=== PATIENT | male | born 1945 | race African-American/Black ===

== ENCOUNTER → 2017-11-15 | Outpatient (CLI) | payer OTHER ==
--- NOTE | ~2017-11-15 | P ---
[facility] [place] [address] PROCEDURE REPORT Name: BETINA MACARIO Room #: REG [facility]#: [id number] Admission: 11/15/17 Attend Phys: Chance Garcia Discharge: Date of : 49 Report #: [id number] THIS REPORT FOR: //name// CC: Chance Bustamante DO DATE OF SERVICE: 11/15/2017 PROCEDURE PERFORMED: Colonoscopy with biopsies. HISTORY OF PRESENT ILLNESS: The patient reports several episodes of blood in the stools recently. This is now resolved. He described a small amount of bright red blood with wiping. Denies any other symptoms. Plan is for colonoscopy. There is no family history of colon cancer. Apparently, his last colonoscopy was in 2006. PROCEDURE: The risks and benefits of the procedure were explained to the patient, those risks including, but not limited to bleeding, perforation, and the risk of sedation. He understood these risks and gave informed consent. Sedation was given using propofol per anesthesia. Next, a digital rectal exam was initially performed, which was normal. Next, using a standard [employer] colonoscope, the scope was placed in the patient's anus and advanced under direct vision to the cecum. The overall prep was excellent. The cecum and ileocecal valve were normal in appearance. Ascending colon was normal. In the transverse colon, a 4-mm sessile polyp was noted, this was removed with cold forceps, otherwise normal. Descending and sigmoid colon were normal. The rectal mucosa was normal. On retroflexion, a small internal hemorrhoid, nonbleeding was noted, otherwise normal. Scope was then withdrawn and the procedure terminated. The patient tolerated the procedure well. IMPRESSION: 1. Small colonic polyp. 2. Small internal hemorrhoid. 3. Otherwise, normal colonoscopy. RECOMMENDATIONS: 1. Await biopsy results. 2. If polyp is hyperplastic, repeat in 10 years; if adenomatous polyp, repeat in 5 years. 3. Source of recent bleeding likely secondary to internal hemorrhoid, there is no evidence of bleeding at this time, recommend high fiber diet and observing. [facility] [address] [place] [address] PROCEDURE REPORT Name: BETINA MACARIO Room #: REG [facility]#: [id number] Admission: 11/15/17 Attend Phys: Chance Garcia Discharge: Date of : 49 Report #: [id number] Thank you for allowing me to participate in his care. <ELECTRONICALLY SIGNED> By: Chance Rodney MD 11/15/17 1622 [id number] Chance Rodney MD /nt
--- NOTE | ~2017-11-15 | S ---
[facility] [place] [address] SURGICAL PATH RPT PROCEDURE Name: BETINA PRO Room #: REG [facility].#: [id number] Admission: 11/15/17 Date of : 49 Discharge: Report #: [id number] Path Case #: [id number] PATHOLOGY REPORT COLLECTION DATE: 11/15/2017 RECEIVED DATE: 11/15/2017 SUBMITTING PHYS: Dr. Chance Rodney OTHER PHYS: Dr. Rajesh Bustamante SPECIMEN(S) RECEIVED: A.Transverse colon polyp biopsy * * * * * * * * * * * * FINAL DIAGNOSIS: "Transverse colon polyp biopsy", biopsy: - Tubular adenoma; no high-grade dysplasia. (CLW:gopi; 11/18/2017) PATHOLOGIST: Cheryl Johnson M.D. REPORT ELECTRONICALLY SIGNED BY: Cheryl Johnson M.D. DATE/TIME: 11/18/2017 21:19 * * * * * * * * * * * * GROSS PATHOLOGY: The specimen is received in formalin, labeled "Betina Pro and transverse colon polyp biopsy", are two fragments of shine soft tissue 0.1 cm and a 0.2 cm in greatest dimension, entirely submitted in A1. ([facility]; 11/15/2017) CLINICAL HISTORY: Blood in stool, colon polyp INITIAL CPT CODE(S): A; 15826 Professional services performed by [facility] at [place] [address], [place] [address] Technical services performed by [facility] at [address] [place], [place] [address]vd., [address], [place], [place] [address]. [facility] [address] [place] [address] [address] [place] [address] SURGICAL PATH RPT PROCEDURE Name: BETINA PRO Room #: [facility].#: [id number] Admission: 11/15/17 Date of : 49 Discharge: Report #: [id number] Path Case #: [id number] [place] [address] PHONE: [phone] DIRECTOR: Hal Mace M.D. * * * END OF REPORT * * *
== END | disposition home or self-care (01) ==
LOC: GI 09:18
DX: K63.5 Polyp of colon (principal); K64.8 Other hemorrhoids
CPT/HCPCS: 62110